=== PATIENT | female | born 1990 | race Caucasian/White ===

== ENCOUNTER 2017-02-28 10:45 | Emergency (ER) | payer SELFPAY ==
[~2017-02-28] VITALS: Ht 170.2 cm; Wt 66.0 kg
[~2017-02-28 10:45] MED LIST: IBUP800T23 PO
[2017-02-28 10:47] VITALS: BP 134/74; PULSE 102; RESP 16; TEMP 99; O2SAT 99
--- NOTE | 2017-02-28 11:08 | PD ---
HPI . cough, facial pressure, head congestion Chief Complaint: Cold / Flu Symptoms Time Seen by Provider: 11:08 Travel History International Travel<30 days: No Contact w/Intl Traveler<30days: No Traveled to known affect area: No History of Present Illness HPI 26-year-old female with tobaccoism here with complaints of cough, cold, head congestion and facial pressure. Patient tells me that she's been experiencing these symptoms for several days. She thinks she may have had a fever and tells me her MAXIMUM TEMPERATURE was approximately 99.5. She is complaining of head pressure and sinus congestion. She also reports a dry cough. She says her kids were dx with strep and PNA. She denies any body aches. PFSH Past Medical History Autoimmune Disease: No Blood Disorders: No Cardiovascular Problems: No Diminished Hearing: No Genitourinary: No Hypertension: Yes (DURING DELIVERY) Musculoskeletal: No Neurologic: No Psychiatric: No Respiratory: No Immunizations Current: Yes ?: Not LMP: 01/2017 : 2 Para: 2 Past Surgical History Section: Yes (X2) Other Surgery: No Family History Family Hypercholesterolemia: Yes (FATHER) Social History Alcohol Use: No Tobacco Use: Yes (1 PPD) Substance Use: No Allergies-Medications (Allergen,Severity, Reaction): Coded Allergies: Amoxicillin (Verified Allergy, Severe, Anaphylaxis, 02/28/17) Penicillin (Verified Allergy, Severe, Anaphylaxis, 02/28/17) CHILDHOOD Sulfa (Verified Allergy, Severe, Anaphylaxis, 02/28/17) Reported Meds & Prescriptions Reported Meds & Active Scripts Active Tessalon Perles (Benzonatate) 100 Mg Cap 100 Mg PO TID PRN Zithromax Z-Sukhdeep (Azithromycin) 250 Mg Dspk 250 Mg PO DIRECTED 500 MG (2 tabs) day 1, then 1 tab days 2-5. Ibuprofen 800 Mg Tab 800 Mg PO TID PRN Review of Systems General / Constitutional: No: Fever Eyes: No: Visual changes HENT: Positive: Congestion, No: Headaches Cardiovascular: No: Chest Pain or Discomfort Respiratory: Positive: Cough (dry), No: Shortness of Breath Gastrointestinal: No: Abdominal Pain Genitourinary: No: Dysuria Musculoskeletal: No: Pain Skin: No Rash Neurologic: No: Weakness Psychiatric: No: Depression Endocrine: No: Polydipsia Hematologic/Lymphatic: No: Easy Bruising Physical Exam Narrative GENERAL: AAO x 3, no acute distress, Well-nourished, well-developed patient. SKIN: Warm and dry. No visible rashes or bruising. HEAD: Normocephalic and atraumatic. EYES: No scleral icterus. No injection or drainage. EOM intact, PERRLA ENT: No nasal drainage noted. Mucous membranes pink. Airway patent. TMs normal bilaterally. Maxillary sinus tenderness. Posterior pharynx without any erythema, exudates or edema. NECK: Supple, trachea midline. No JVD. No significant lymphadenopathy. CARDIOVASCULAR: Regular rate and rhythm without murmurs, gallops, or rubs. HR on exam 92 RESPIRATORY: Breath sounds equal bilaterally. No accessory muscle use. No rhonchi or rales. No wheezing. GASTROINTESTINAL: Abdomen soft, non-tender, nondistended. EXTREMITIES: No cyanosis or edema. BACK: Nontender without obvious deformity. No CVA tenderness. PSYCH: AAO x 3, normal affect. Data Data Last Documented VS Vital Signs Date Time Temp Pulse Resp B/P Pulse Ox O2 Delivery O2 Flow Rate FiO2 02/28/17 10:47 99.0 102 16 134/74 99 MDM Medical Decision Making Medical Screen Exam Complete: Yes Emergency Medical Condition: Yes Medical Record Reviewed: Yes Differential Diagnosis Acute sinusitis, pharyngitis, less likely bronchitis, less likely pneumonia Narrative Course 26-year-old female with tobaccoism here with complaints of cough, cold, head congestion and facial pressure. Patient tells me that she's been experiencing these symptoms for several days. She thinks she may have had a fever and tells me her MAXIMUM TEMPERATURE was approximately 99.5. She is complaining of head pressure and sinus congestion. She also reports a dry cough. She says her kids were dx with strep and PNA. She denies any body aches. Patient seen and examined. She appears to have a sinusitis. She does not have any signs of strep throat or bronchitis. My index of suspicion for pneumonia is low. I recommend a course of azithromycin, which will cover for sinusitis and strep throat, as well as any atypical pneumonias. I provided her with No Matias for her cough. She was given a note for work. I advised follow-up with primary care provider. Patient verbalized understanding of instructions, questions were answered, and thanked me for their care. I advised them if their condition worsens, please return to the nearest emergency room for further care. Diagnosis Primary Impression: Acute sinusitis Qualified Code: J01.00 - Acute non-recurrent maxillary sinusitis Patient Instructions: General Instructions, Sinusitis (ED) Additional Instructions: Please return to emergency department if your symptoms return or worsen. Follow up with your primary care provider. Take medications as prescribed. Med/Other Pt SpecificInfo: Prescription(s) given Scripts Benzonatate (Tessalon Perles)100 Mg [id number] Mg PO TID PRN (COUGH) #21 CAP Ref 0 Prov:Tapan Bryant MD 02/28/17 Azithromycin (Zithromax Z-Sukhdeep)250 Mg [id number] Mg PO DIRECTED #1 DSPK Ref 0 500 MG (2 tabs) day 1, then 1 tab days 2-5. Prov:Tapan Bryant MD 02/28/17 Disposition: 01 DISCHARGE HOME Condition: Stable Palma Barrera Feb 28, 2017 11:08
[2017-02-28] MEDS ORDERED: ZITHTAB PO (11:23)
[2017-02-28] MEDS ORDERED: BENZ100 PO (11:36)
== END 2017-02-28 11:49 | disposition home or self-care (01) ==
LOC: NEPK 10:45
DX: J01.00 Acute maxillary sinusitis, unspecified (principal); R05 Cough; F17.200 Nicotine dependence, unspecified, uncomplicated
CPT/HCPCS: 99283

== ENCOUNTER 2017-06-05 20:52 | Emergency (ER) | payer SELFPAY ==
[~2017-06-05] VITALS: Ht 152.4 cm; Wt 65.9 kg
[~2017-06-05 20:52] MED LIST changes: +BENZ100 PO; +ZITHTAB PO
[2017-06-05 21:15] VITALS: BP 132/76; PULSE 86; RESP 20; TEMP 98.6; O2SAT 100
--- NOTE | 2017-06-05 22:20 | RADRPT ---
EXAM DATE/TIME: 06/05/2017 21:53 [facility] COMPARISON: No previous studies available for comparison. INDICATIONS : Right hand pain on medial and lateral side after falling. MEDICAL HISTORY : None. SURGICAL HISTORY : None. ENCOUNTER: Initial ACUITY: 2 days PAIN SCORE: 6/10 LOCATION: Right hand FINDINGS: No definite fractures, or dislocations are identified. No definite lytic or sclerotic lesion is seen . The joint spaces are well maintained. CONCLUSION: Unremarkable study. Scotty Clark MD on June 05, 2017 at 22:17 Board Certified Radiologist. This report was verified electronically.
--- NOTE | 2017-06-05 22:21 | RADRPT ---
EXAM DATE/TIME: 06/05/2017 21:59 [facility] COMPARISON: No previous studies available for comparison. INDICATIONS : Left knee pain on lateral side after fall. MEDICAL HISTORY : None. SURGICAL HISTORY : None. ENCOUNTER: Initial ACUITY: 2 days PAIN SCORE: 5/10 LOCATION: Left knee FINDINGS: No definite fractures, or dislocations are identified. No definite lytic or sclerotic lesion is seen . The joint spaces are well maintained. CONCLUSION: Unremarkable study. Scotty Clark MD on June 05, 2017 at 22:19 Board Certified Radiologist. This report was verified electronically.
--- NOTE | 2017-06-05 22:21 | RADRPT ---
EXAM DATE/TIME: 06/05/2017 21:56 [facility] COMPARISON: No previous studies available for comparison. INDICATIONS : Right wrist pain on medial and lateral side after falling. MEDICAL HISTORY : None. SURGICAL HISTORY : None. ENCOUNTER: Initial ACUITY: 2 days PAIN SCORE: 5/10 LOCATION: Right wrist FINDINGS: No definite fractures, or dislocations are identified. No definite lytic or sclerotic lesion is seen . The joint spaces are well maintained. CONCLUSION: Unremarkable study. Scotty Clark MD on June 05, 2017 at 22:19 Board Certified Radiologist. This report was verified electronically.
[2017-06-05] MEDS ORDERED: DICL75TA PO (22:26)
[2017-06-05] MEDS ORDERED: MUPI2%T TOPICAL (22:26)
--- NOTE | 2017-06-05 22:29 | PD ---
HPI Chief Complaint: Fall Time Seen by Provider: 22:27 Travel History International Travel<30 days: No Contact w/Intl Traveler<30days: No Traveled to known affect area: No History of Present Illness HPI 27-year-old female that presents to the ED for evaluation of fall. Per patient is happened yesterday. She fell on a curb at her house. She landed on her left knee and her right wrist. Per patient she has pain in both of this areas. Per patient most of her pain is on the right hand. Per patient she has a sensation of numbness and tingling on the fifth digit which has no pain on the fifth digit. Per patient most of the pain is on the ulnar aspect where she has an abrasion on the hypothenar area. She is able to move the wrist fully. She denies any prior injuries. Up-to-date with her tetanus. She states that her pain currently say out of 10. Worse in the wrist. She is able to ambulate and she has pain with flexion on the left knee but otherwise has no complaints with it. She does have an abrasion to the area where she has pain. This happened yesterday. PFSH Past Medical History Anemia: Yes Autoimmune Disease: No Blood Disorders: No Cardiovascular Problems: No Diminished Hearing: No Genitourinary: No Hypertension: Yes (DURING DELIVERY) Medical other: Yes (potassium gets low) Musculoskeletal: No Neurologic: No Psychiatric: No Respiratory: No Immunizations Current: Yes Tetanus Vaccination: > 5 Years Influenza Vaccination: No ?: Not LMP: end of april : 2 Para: 2 Past Surgical History Section: Yes (X2) Other Surgery: No Family History Family Hypercholesterolemia: Yes (FATHER) Social History Alcohol Use: Yes (once weeek) Tobacco Use: Yes (1 PPD) Substance Use: No Allergies-Medications (Allergen,Severity, Reaction): Coded Allergies: Amoxicillin (Verified Allergy, Severe, Anaphylaxis, 06/05/17) Penicillin (Verified Allergy, Severe, Anaphylaxis, 06/05/17) CHILDHOOD Sulfa (Verified Allergy, Severe, Anaphylaxis, 06/05/17) Reported Meds & Prescriptions Reported Meds & Active Scripts Active Bactroban Topical (Mupirocin) 22 Gm Cream 1 Applic TOPICAL TID Diclofenac Sodium DR (Diclofenac Sodium) 75 Mg Tabdr 75 Mg PO BID PRN Review of Systems Except as stated in HPI: all other systems reviewed are Neg Physical Exam Narrative GENERAL: SKIN: Warm and dry. Patient has superficial abrasions to the palmar aspect of the right hand as well as the left knee. About 2 cms in diameter. HEAD: Atraumatic. Normocephalic. EYES: Pupils equal and round. No scleral icterus. No injection or drainage. ENT: No nasal bleeding or discharge. Mucous membranes pink and moist. NECK: Trachea midline. No JVD. CARDIOVASCULAR: Regular rate and rhythm. RESPIRATORY: No accessory muscle use. Clear to auscultation. Breath sounds equal bilaterally. GASTROINTESTINAL: Abdomen soft, non-tender, nondistended. Hepatic and splenic margins not palpable. MUSCULOSKELETAL: Extremities without clubbing, cyanosis, or edema. No obvious deformities. Patient has full range of motion of the upper and lower extremities bilaterally. Patient does have pain with full flexion of the left knee but able to move it fully with minimal discomfort. Able to ambulate with minimal difficulty. Patient does have reproducible pain on the hypothenar aspect of the right hand. Able to move all digits with no pain. 2+ pulses bilaterally. Good capillary refill. Able to flex and extend the wrist but has more pain with flexion. No scar for bone tenderness to palpation. Neurovascular intact. NEUROLOGICAL: Awake and alert. No obvious cranial nerve deficits. Motor grossly within normal limits. Five out of 5 muscle strength in the arms and legs. Normal speech. PSYCHIATRIC: Appropriate mood and affect; insight and judgment normal. Data Data Last Documented VS Vital Signs Date Time Temp Pulse Resp B/P Pulse Ox O2 Delivery O2 Flow Rate FiO2 06/05/17 21:32 06/05/17 21:15 98.6 86 20 100 Orders Hand, Complete ([id number]) (06/05/17 21:47) Knee, Complete (4vws) (06/05/17 21:47) Wrist, Complete ([id number]) (06/05/17 21:47) Splint Or Brace Apply/Monitor (06/05/17 22:27) [facility] Medical Decision Making Medical Screen Exam Complete: Yes Emergency Medical Condition: Yes Medical Record Reviewed: Yes Interpretation(s) Last Impressions Wrist X-Ray 06/05/17 3523 Signed Impressions: Service Date/Time: May 21:56 - CONCLUSION: Unremarkable study. Scotty Clark MD Hand X-Ray 06/05/17 2147 Signed Impressions: Service Date/Time: May 21:53 - CONCLUSION: Unremarkable study. K. Rupert Clark MD xray of knee negative Differential Diagnosis Fracture versus sprain versus strain versus bruise versus contusion Narrative Course 27-year-old female that presents to the ED for evaluation of fall. Patient was properly examined and was found to have signs and symptoms very consistent what appears to be musculoskeletal injuries. X-rays were ordered. X-rays were negative for acute disease. Patient was reassured. Patient will be put on a brace. Told to do wound care. Given a prescription for diclofenac sodium and Bactroban. Given note for work. See ED worsening symptoms. Ice or warm compresses as needed. Diagnosis Primary Impression: Wrist contusion Qualified Code: S60.211A - Contusion of right wrist, initial encounter Additional Impressions: Multiple abrasions Knee contusion Qualified Code: S80.02XA - Contusion of left knee, initial encounter Patient Instructions: General Instructions Departure Forms: Tests/Procedures, Work Release Enter return to work date: Jun 06, 2017 Additional Instructions: Take medications as prescribed. Follow-up with PCP. See ED for any worsening symptoms. Apply ice or heat as needed for pain Med/Other Pt SpecificInfo: Prescription(s) given Scripts Mupirocin Topical (Bactroban Topical)22 Gm Cream1 Applic TOPICAL TID #1 TUBE Ref 0 Prov:Rupert Omer MD 06/05/[address] 75 Mg Tabdr75 Mg PO BID PRN (PAIN SCALE 1 TO 10) #20 TAB Prov:Rupert Omer MD 06/05/17 Disposition: 01 DISCHARGE HOME Condition: Stable Minh Linares Jun 05, 2017 22:28
== END 2017-06-05 22:39 | disposition home or self-care (01) ==
LOC: PHEFT 20:52
DX: S60.211A Contusion of right wrist, initial encounter (principal); S80.02XA Contusion of left knee, initial encounter; W10.1XXA Fall (on)(from) sidewalk curb, initial encounter; Y92.009 Unspecified place in unspecified non-institutional (private) residence as the place of occurrence of the external cause
CPT/HCPCS: 73110; 73130; 73564; 99284; L3908

== ENCOUNTER 2017-10-01 08:57 | Emergency (ER) | payer SELFPAY ==
[~2017-10-01] VITALS: Ht 170.2 cm; Wt 70.0 kg
[~2017-10-01 08:57] MED LIST changes: -BENZ100 PO; +DICL75TA PO; -IBUP800T23 PO; +MUPI2%T TOPICAL; -ZITHTAB PO
[2017-10-01 08:58] VITALS: BP 143/66; PULSE 90; RESP 12; TEMP 98.2; O2SAT 99
--- NOTE | 2017-10-01 09:13 | PD ---
HPI Chief Complaint: Musculoskeletal Complaint Time Seen by Provider: 09:10 Travel History International Travel<30 days: No Contact w/Intl Traveler<30days: No Traveled to known affect area: No History of Present Illness HPI 27-year-old female presents for evaluation of left arm pain. It started early this morning. She reports that it is an aching type pain to the anterior left biceps and forearm which is worse with flexion of her arm. She does not recall any injuries or any repetitive motion activities that could've exacerbated this pain. She has not tried using any medication [id number] for symptom relief. She has no other complaints. History Past Medical Histgory LMP: 09/02/17 Social History Alcohol Use: Yes (once weeek) Tobacco Use: Yes (1 PPD) Allergies-Medications (Allergen,Severity, Reaction): Coded Allergies: Sulfa (Sulfonamide Antibiotics) (Unverified Allergy, Severe, Anaphylaxis, 07/08/17) amoxicillin (Unverified Allergy, Severe, Anaphylaxis, 07/08/17) penicillin G (Unverified Allergy, Severe, Anaphylaxis, 07/08/17) CHILDHOOD Reported Meds & Prescriptions Reported Meds & Active Scripts Active Bactroban Topical (Mupirocin) 22 Gm Cream 1 Applic TOPICAL TID Diclofenac Sodium DR (Diclofenac Sodium) 75 Mg Tabdr 75 Mg PO BID PRN Review of Systems Except as stated in HPI: all other systems reviewed are Neg Physical Exam Narrative GENERAL: Well-developed well-nourished female in no acute distress SKIN: Warm and dry. No bruising or soft tissue swelling CARDIOVASCULAR: Regular rate and rhythm. No murmur appreciated. RESPIRATORY: No accessory muscle use. Clear to auscultation. Breath sounds equal bilaterally. GASTROINTESTINAL: Abdomen soft, non-tender, nondistended. Hepatic and splenic margins not palpable. MUSCULOSKELETAL: No obvious deformities. The patient has pain with left arm flexion against resistance. There is no weakness. There is no edema. There is no bony deformity or range of motion limitation. 2+ radial pulse. Capillary for less than 2 seconds all digits left hand. NEUROLOGICAL: Awake and alert. No obvious cranial nerve deficits. Motor grossly within normal limits. Normal speech. Data Data Last Documented VS Vital Signs Date Time Temp Pulse Resp B/P (MAP) Pulse Ox O2 Delivery O2 Flow Rate FiO2 10/01/17 08:58 98.2 90 12 143/66 (91) 99 MDM Medical Screen Exam Complete: Yes Emergency Medical Condition: No Narrative Course Physical examination is reassuring. The patient's pain appears to be musculoskeletal, most likely related to tendinitis versus muscle strain. A medical screening exam was performed: At the time of evaluation the presenting medical condition was determined not to be of an emergent nature. The patient was given the option of receiving additional care, but declined. Patient was given options for additional community resources from which to obtain care. The Patient Has Been advised to seek medical attention for their presenting complaint. The patient has been advised to return to the ER at any time if an emergent condition develops. Primary Impression: Encounter for medical screening examination Willy Garcia Oct 01, 2017 09:13
== END 2017-10-01 09:30 | disposition left against medical advice (07) ==
LOC: NEPD 08:57
DX: M79.602 Pain in left arm (principal)
CPT/HCPCS: 99281

== ENCOUNTER 2017-11-25 14:09 | Emergency (ER) | payer SELFPAY ==
[~2017-11-25] VITALS: Ht 170.2 cm; Wt 67.0 kg
[2017-11-25 14:16] VITALS: BP 142/79; PULSE 64; RESP 15; TEMP 97.8; O2SAT 100
[2017-11-25] MEDS ORDERED: CLIN300C5 PO (14:37)
--- NOTE | 2017-11-25 14:43 | PD ---
HPI Chief Complaint: Skin Problem Time Seen by Provider: 14:05 Travel History International Travel<30 days: No Contact w/Intl Traveler<30days: No Traveled to known affect area: No History of Present Illness HPI 27 -year-old female with a paronychia to the left third digit. The area drained spontaneously. He denies fever or chills. She reports normal sensation and full range of motion of the finger. Symptom severity is mild. No aggravating or alleviating factors. PFSH Past Medical History Anemia: Yes Autoimmune Disease: No Blood Disorders: No Cardiovascular Problems: No Diminished Hearing: No Genitourinary: No Hypertension: Yes (DURING DELIVERY) Musculoskeletal: No Neurologic: No Psychiatric: No Respiratory: No Immunizations Current: Yes ?: Not LMP: 3.5 WEEKS AGO : 2 Para: 2 Past Surgical History Section: Yes (X2) Other Surgery: No Family History Family Hypercholesterolemia: Yes (FATHER) Social History Alcohol Use: Yes (once weeek) Tobacco Use: Yes (1 PPD) Substance Use: No Allergies-Medications (Allergen,Severity, Reaction): Coded Allergies: Sulfa (Sulfonamide Antibiotics) (Unverified Allergy, Severe, Anaphylaxis, 11/25/17) amoxicillin (Unverified Allergy, Severe, Anaphylaxis, 11/25/17) penicillin G (Unverified Allergy, Severe, Anaphylaxis, 11/25/17) CHILDHOOD Reported Meds & Prescriptions Reported Meds & Active Scripts Active Clindamycin (Clindamycin HCl) 300 Mg Cap 300 Mg PO TID 10 Days Review of Systems Except as stated in HPI: all other systems reviewed are Neg General / Constitutional: No: Fever Physical Exam Narrative GENERAL: Alert well-appearing female. SKIN: Warm and dry. Draining paronychia to the left third digit. HEAD: Normocephalic. EYES: . No injection or drainage. NECK: Supple, trachea midline. MUSCULOSKELETAL: No cyanosis, or edema. Left hand: Draining paronychia to the left third digit. No swelling. Full range of motion. Prescribed refill. Data Data Last Documented VS Vital Signs Date Time Temp Pulse Resp B/P (MAP) Pulse Ox O2 Delivery O2 Flow Rate FiO2 11/25/17 14:16 97.8 64 15 142/79 (100) 100 MDM Medical Decision Making Medical Screen Exam Complete: Yes Emergency Medical Condition: Yes Differential Diagnosis Paronychia, abscess, cellulitis Narrative Course 27 -year-old female with a paronychia to the left third digit. The area drained spontaneously. There is no need for incision and drainage. The patient we put on antibiotics and instructed to soak the finger in Epsom salts soaks several times per day. Diagnosis Primary Impression: Paronychia of finger Qualified Codes: L03.012 - Cellulitis of left finger Referrals: Primary Care Physician Additional Instructions: Soak the finger in warm Epsom salt soaks Antibiotics as prescribed. Tylenol or ibuprofen for pain. Scripts Clindamycin (Clindamycin) 300 Mg Cap 300 MG PO TID for Infection for 10 Days, CAP 0 Refills Prov: Carmen Monroe 11/25/17 Disposition: 01 DISCHARGE HOME Condition: Stable Carmen Monroe Nov 25, 2017 14:43
== END 2017-11-25 14:52 | disposition home or self-care (01) ==
LOC: PHEFT 14:09
DX: L03.012 Cellulitis of left finger (principal); D64.9 Anemia, unspecified; F17.210 Nicotine dependence, cigarettes, uncomplicated
CPT/HCPCS: 99283

== ENCOUNTER 2018-02-28 17:31 | Emergency (ER) | payer SELFPAY ==
[~2018-02-28] VITALS: Ht 170.2 cm; Wt 70.0 kg
[~2018-02-28 17:31] MED LIST changes: +CLIN300C5 PO; -DICL75TA PO; -MUPI2%T TOPICAL
[2018-02-28 18:05] VITALS: BP 126/72; PULSE 107; RESP 20; TEMP 98; O2SAT 100
[2018-02-28] MEDS ORDERED: SODIUM CHLOR 0.9% 1000 ML INJ 1,000 ML IV ONE (21:25)
--- NOTE | 2018-02-28 21:29 | PD ---
HPI Chief Complaint: GI Complaint Time Seen by Provider: 21:12 Travel History International Travel<30 days: No Contact w/Intl Traveler<30days: No Traveled to known affect area: No History of Present Illness HPI 27-year-old female with PMH of iron deficiency anemia presents to the ED for evaluation of intermittent nausea, dizziness and vomiting 2 weeks. Last episode occurred at work today. 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 She denies associated headache, blurred vision , chest pain, palpitations, shortness of breath, abdominal pain, dysuria, back pain, pelvic pain, dyspareunia. Patient endorses drinking 2-3 monster energy drinks and several caffeinated sodas daily. LMP approximately 28 days ago. Patient states her normal periods are 7 days, last period was 5 days. She states that she had a few days of bleeding after this. She endorses risks of , unprotected sex with a single male partner. Patient states she took several tests at home and had a faint positive on one test. PFSH Past Medical History Anemia: Yes Autoimmune Disease: No Blood Disorders: No Cardiovascular Problems: No Diminished Hearing: No Genitourinary: No Hypertension: Yes (DURING DELIVERY) Musculoskeletal: No Neurologic: No Psychiatric: No Respiratory: No Immunizations Current: Yes ?: Unknown LMP: 02/05/18 : 2 Para: 2 Past Surgical History Section: Yes (X2) Other Surgery: No Family History Family Hypercholesterolemia: Yes (FATHER) Social History Alcohol Use: Yes (once weeek) Tobacco Use: Yes (1 PPD) Substance Use: No Allergies-Medications (Allergen,Severity, Reaction): Coded Allergies: Sulfa (Sulfonamide Antibiotics) (Verified Allergy, Severe, Anaphylaxis, 02/28/18) amoxicillin (Verified Allergy, Severe, Anaphylaxis, 02/28/18) penicillin G (Verified Allergy, Severe, Anaphylaxis, 02/28/18) CHILDHOOD Reported Meds & Prescriptions Reported Meds & Active Scripts Active Zofran Odt (Ondansetron Odt) 4 Mg Tab 4 Mg SL Q12HR PRN Review of Systems Except as stated in HPI: all other systems reviewed are Neg Physical Exam Narrative GENERAL: Well-nourished, well-developed white female no acute distress. SKIN: Focused skin assessment warm/dry. HEAD: Normocephalic. EYES: No scleral icterus. No injection or drainage. NECK: Supple, trachea midline. No JVD or lymphadenopathy. CARDIOVASCULAR: Regular rate and rhythm without murmurs, gallops, or rubs. RESPIRATORY: Breath sounds clear and equal bilaterally. No accessory muscle use. GASTROINTESTINAL: Abdomen soft, non-tender, nondistended. Active bowel sounds. MUSCULOSKELETAL: No cyanosis, or edema. Hohmann sign negative bilaterally. Moves extremities spontaneously. NEUROLOGICAL: Awake and alert. Cranial nerves II through XII intact. Motor and sensory grossly within normal limits. Five out of 5 muscle strength in all muscle groups. Normal speech. BACK: Nontender without obvious deformity. No CVA tenderness. Data Data Last Documented VS Vital Signs Date Time Temp Pulse Resp B/P (MAP) Pulse Ox O2 Delivery O2 Flow Rate FiO2 02/28/18 23:03 02/28/18 22:36 86 16 86 16 86 02/28/18 18:05 98.0 100 Orders Orders Ed Urine Pregnancytest Poc (02/28/18 21:12) Complete Blood Count With Diff (02/28/18 21:25) Basic Metabolic Panel (Bmp) (02/28/18 21:25) Urinalysis - C+S If Indicated (02/28/18 21:25) Sodium Chlor 0.9% 1000 Ml Inj (Ns 1000 M (02/28/18 21:25) Ondansetron Inj (Zofran Inj) (02/28/18 21:30) Beta Hcg (Quant/Titer) (02/28/18 21:25) Orthostatic Vital Signs (02/28/18 22:27) Ed Discharge Order (02/28/18 22:54) Labs Laboratory Tests Test 02/28/18 21:30 White Blood Count 8.5 TH/MM3 Red Blood Count 4.23 MIL/MM3 Hemoglobin 10.2 GM/DL Hematocrit 32.0 % Mean Corpuscular Volume 75.6 FL Mean Corpuscular Hemoglobin 24.1 PG Mean Corpuscular Hemoglobin Concent 31.9 % Red Cell Distribution Width 16.1 % Platelet Count 331 TH/MM3 Mean Platelet Volume 9.2 FL Neutrophils (%) (Auto) 67.5 % Lymphocytes (%) (Auto) 22.2 % Monocytes (%) (Auto) 7.5 % Eosinophils (%) (Auto) 2.1 % Basophils (%) (Auto) 0.7 % Neutrophils # (Auto) 5.7 TH/MM3 Lymphocytes # (Auto) 1.9 TH/MM3 Monocytes # (Auto) 0.6 TH/MM3 Eosinophils # (Auto) 0.2 TH/MM3 Basophils # (Auto) 0.1 TH/MM3 CBC Comment DIFF FINAL Differential Comment Urine Color LIGHT-YELLOW Urine Turbidity CLEAR Urine pH 6.0 Urine Specific [place] 1.022 Urine Protein NEG mg/dL Urine Glucose (UA) NEG mg/dL Urine Ketones NEG mg/dL Urine Occult Blood NEG Urine Nitrite NEG Urine Bilirubin NEG Urine Urobilinogen LESS THAN 2.0 MG/DL Urine Leukocyte Esterase NEG Urine RBC 1 /hpf Urine WBC 1 /hpf Urine Squamous Epithelial Cells 5 /hpf Urine Mucus FEW /lpf Microscopic Urinalysis Comment CULT NOT INDICATED Blood Urea Nitrogen 8 MG/DL Creatinine 0.77 MG/DL Random Glucose 91 MG/DL Calcium Level 9.0 MG/DL Sodium Level 140 MEQ/L Potassium Level 3.5 MEQ/L Chloride Level 108 MEQ/L Carbon Dioxide Level 24.7 MEQ/L Anion Gap 7 MEQ/L Estimat Glomerular Filtration Rate 89 ML/MIN Human Chorionic Gonadotropin, Quant LESS THAN 1 MIU/ML MDM Medical Decision Making Medical Screen Exam Complete: Yes Emergency Medical Condition: Yes Differential Diagnosis caffeine side effect versus orthostatic hypotension versus dehydration versus anemia versus other Narrative Course 27-year-old female with PMH of iron deficiency anemia presents to the ED for evaluation of intermittent nausea, dizziness and vomiting 2 weeks. Last episode occurred at work today. Patient endorses drinking 2-3 monster energy drinks and several caffeinated sodas daily. She endorses risks of , unprotected sex with a single male partner. LMP approximately 28 days ago. Patient states she took several tests at home and had a faint positive on one test. Vitals reviewed. Patient's tachycardic at triage but this resolves in the exam room. Orthostatic vitals negative. No focal neuro deficits. CBC suspicious for iron deficiency anemia, hemoglobin 10.2. CMP is unremarkable. HCG less than 1. No culture indicated of the urine. I suspect that patient's symptoms are a combination of her mild anemia and caffeine abuse. Patient's instructed to begin taking a daily vitamin with iron supplements, gradually decrease her caffeine intake, follow with her primary care provider. She is stable and discharged home. Diagnosis Primary Impression: Nausea Additional Impressions: Episodic lightheadedness Caffeine use Referrals: [facility] Additional Instructions: Rest, hydrate. Begin taking a daily vitamin with iron. Gradually decrease her caffeine intake while simultaneously increasing your water intake daily. Follow-up with the [place] [facility] as discussed. Return to the ED for worsening symptoms or any urgent or emergent medical condition. Med/Other Pt SpecificInfo: Prescription(s) given Scripts Ondansetron Odt (Zofran Odt) 4 Mg Tab 4 MG SL Q12HR Y for Nausea/Vomiting, #6 TAB 0 Refills Prov: Ac Childs MD 02/28/18 Disposition: 01 DISCHARGE HOME Condition: Stable Clare Garcia Feb 28, 2018 21:29
[2018-02-28] MEDS ORDERED: ONDANSETRON HCL 4 MG/2 ML VIAL IVP ONE (21:30)
[2018-02-28 22:22] LABS: AUTOMATED NEUTROPHIL # 5.7 TH/MM3 (1.8-7.7); BASOPHIL # 0.1 TH/MM3 (0-0.2); BASOPHIL % 0.7 % (0.0-2.0); EOSINOPHIL # 0.2 TH/MM3 (0-0.4); EOSINOPHIL % 2.1 % (0.0-4.0); HEMOGLOBIN 10.2 GM/DL (11.6-15.3); LYMPH % 22.2 % (9.0-44.0); LYMPHOCYTE # 1.9 TH/MM3 (1.0-4.8); MEAN CELL VOLUME 75.6 FL (80.0-100.0); MEAN CORPUSCULAR HEMOGLOBIN 24.1 PG (27.0-34.0); MEAN CORPUSCULAR HGB CONC 31.9 % (32.0-36.0); MEAN PLATELET VOLUME 9.2 FL (7.0-11.0); MONO % 7.5 % (0.0-8.0); MONOCYTE # 0.6 TH/MM3 (0-0.9); NEUT % 67.5 % (16.0-70.0); PLATELET COUNT 331 TH/MM3 (150-450); RED BLOOD COUNT 4.23 MIL/MM3 (4.00-5.30); RED CELL DISTRIBUTION WIDTH 16.1 % (11.6-17.2); WHITE BLOOD COUNT 8.5 TH/MM3 (4.0-11.0)
[2018-02-28 22:33] LABS: BILIRUBIN, URINE NEG (NEG); BLOOD, URINE NEG (NEG); GLUCOSE,URINE NEG (NEG); KETONE, URINE NEG (NEG); MUCUS URINE FEW /lpf (OCC); NITRITE,URINE NEG (NEG); SQUAMOUS EPITHELIAL CELL URINE 5 /hpf (0-5); URINE COLOR LIGHT-YELLOW (YELLW/STRAW); URINE LEUKOCYTE ESTERASE NEG (NEG)
[2018-02-28 22:36] VITALS: BP_SYST 117; BP_SYST 121; BP_SYST 124; BP_DIAS 67; BP_DIAS 70; BP_DIAS 75; RESP 16
[2018-02-28 22:38] LABS: BICARBONATE 24.7 MEQ/L (21.0-32.0); BLOOD UREA NITROGEN 8 MG/DL (7-18); CHLORIDE 108 MEQ/L (98-107); CREATININE 0.77 MG/DL (0.50-1.00); GLOMERULAR FILTRATION RATE 89 ML/MIN (>89); GLUCOSE,RANDOM 91 MG/DL (74-106); SODIUM (NA) 140 MEQ/L (136-145)
[2018-02-28] MEDS ORDERED: ZOFR4TAB3 SL (22:54)
== END 2018-02-28 23:04 | disposition home or self-care (01) ==
LOC: NEPE 17:31
DX: R11.2 Nausea with vomiting, unspecified (principal); R42 Dizziness and giddiness; D50.9 Iron deficiency anemia, unspecified; D64.9 Anemia, unspecified; I10 Essential (primary) hypertension; R00.0 Tachycardia, unspecified; F17.200 Nicotine dependence, unspecified, uncomplicated; Z32.02 Encounter for pregnancy test, result negative; Z88.0 Allergy status to penicillin
CPT/HCPCS: 80048; 81001; 84702; 84703; 85025; 99284; J2405; J7030